=== PATIENT | female | born 1995 | race Caucasian/White ===

== ENCOUNTER 2019-11-01 11:30 | Emergency (ER) | payer SELFPAY ==
[2019-11-01 11:48] VITALS: BP 120/88; PULSE 106; RESP 16; TEMP 38.3; O2SAT 100
--- NOTE | 2019-11-01 11:53 | ED.URI ---
HPI - URI/Sore Throat General Chief Complaint: Upper Respiratory Infection Stated Complaint: Congestion Time Seen by Provider: 11/01/19 11:53 Source: patient and RN notes reviewed Mode of arrival: ambulatory Limitations: no limitations History of Present Illness HPI Narrative: 24-year-old female presents with concern for cough, chest congestion, rhinorrhea that started on Saturday. Reports taking [id number] cold medicines with little relief. MD elicited complaint: cough and nasal congestion Related Data Allergies Allergy/AdvReac Type Severity Reaction Status Date / Time No Known Allergies Allergy Verified 11/01/19 12:01 Review of Systems Review of Systems: Narrative: CONSTITUTIONAL: Reports malaise. Denies chills, sweats, or fever. EYES: Denies visual changes, redness, or discharge. ENT: Reports rhinorrhea, congestion. Denies sinus pain, otalgia and sore throat. CARDIOVASCULAR: Denies chest pain, palpitations, or edema. RESPIRATORY: Reports cough. Denies dyspnea. GASTROINTESTINAL: Denies abdominal pain, nausea, vomiting, diarrhea SKIN: Denies rash or itching. MUSCULOSKELETAL: Denies myalgia. NEUROLOGIC: Denies headache. All systems reviewed & are unremarkable except as noted in HPI and below PMFSH Social History Social History Smoking status: Never smoker Alcohol intake: never Gender identity (if verbalized by the patient): Female Comments At time of signature, agree with nursing past medical, surgical, social and family history. There is no relevant family history pertinent to the presenting complaint Exam Narrative: Exam Narrative: GENERAL: Well-appearing, well-nourished, and in no acute distress. HEAD: Normocephalic EYES: PERRLA, conjunctivae clear ENT: Nares clear, turbinates edematous and erythematous, clear discharge. Mucous membranes moist. Oropharynx not erythematous without lesions. Tonsils not enlarged and without exudate, no drooling, no hoarseness, no trismus. NECK: Supple. No lymphadenopathy CHEST: Clear to auscultation, breath sounds equal. No wheezing, rhonchi, rales, or stridor. No respiratory distress, speaks in full sentences. Cough noted HEART: Regular rate and rhythm. No murmur heard. Normal peripheral pulses. SKIN: Warm, dry, no rash. NEURO: Alert and oriented x3. PSYCH: Normal mood and affect Course Course Emergency Course: Patient is aware of diagnosis, understands and agrees to treatment plan. Anticipatory guidance given. Patient agrees to follow-up as directed and is aware of reasons to seek care at the emergency department. Portions of this record may have been created with voice recognition software Vital Signs Vital signs: Vital Signs Temperature 101 F H 11/01/19 11:48 Pulse Rate 106 H 11/01/19 11:48 Respiratory Rate 16 11/01/19 11:48 Blood Pressure 120/88 11/01/19 11:48 Pulse Oximetry 100 11/01/19 11:48 Temperature 101 F H 11/01/19 11:48 Pulse Rate 106 H 11/01/19 11:48 Respiratory Rate 16 11/01/19 11:48 Blood Pressure 120/88 11/01/19 11:48 Pulse Oximetry 100 11/01/19 11:48 Reviewed. MDM - URI/Sore Throat MDM Narrative Medical decision making narrative: Differential diagnosis considered: Strep pharyngitis, allergic rhinitis, upper respiratory tract infection, sinusitis, rhinosinusitis, nasopharyngitis. viral pharyngitis, otitis media, otitis externa, pneumonia, bronchitis, viral cough syndrome, viral syndrome, and influenza. Exam findings show no acute concerns or changes; patient is non-toxic appearing and is in no distress. Patient is appropriate for outpatient treatment and follow-up. Lab Data Attestation: I reviewed the patient's lab results. Labs: Influenza A Screen Positive Reference Range: Negative Influenza B Screen Negative Reference Range: Negative Critical Care Time Critical Care Time Critical Care Time: No Discharge Plan Discharge Clinical Impression: Influenza A Pat
== END 2019-11-01 12:28 | disposition home or self-care (01) ==
PROVIDERS: Emergency Provider Nurse Practitioner
DX: J10.1 Influenza due to other identified influenza virus with other respiratory manifestations (principal)
CPT/HCPCS: 87804; 99213; G0463